=== PATIENT | male | born 1955 | race Caucasian/White ===

== ENCOUNTER → 2023-07-23 12:48 | Outpatient (REF) | payer OTHER, SELFPAY | LOC: RCS 12:48 | PROVIDERS: ATTENDING PHYSICIAN Internal Medicine Cardiovascular Disease; FAMILY PHYSICIAN Student in an Organized Health Care Education/Training Program | DX: I51.7 Cardiomegaly (principal); I51.89 Other ill-defined heart diseases | CPT/HCPCS: 93307; Q9950; Q9957 ==

== ENCOUNTER 2024-04-12 17:03 | Inpatient (IN) | payer OTHER, SELFPAY ==
[2024-04-12 13:30] VITALS: BP 141/102
[2024-04-12 13:48] LABS: % Basophils 0.7 % (0-2); % Eosinophils 1.9 % (0-6); % Immature Granulocytes 0.4 % (0-0.5); % Lymphocytes 21.5 % (20.5-51.1); % Monocytes 11.3 % (1.7-9.3); % Neutrophils 64.2 % (42.2-75.2); Absolute Basophils 0.1 10^3/uL (0-0.2); Absolute Eosinophils 0.2 10^3/uL (0-0.7); Absolute Lymphocytes 1.8 10^3/uL (1.2-3.4); Absolute Neutrophils 5.4 10^3/uL (1.4-6.5); Hematocrit 40.2 % (39.0-52.0); Hemoglobin 13.3 g/dL (13.0-18.0); Mean Corp Hgb Conc. 33.1 g/dL (33.0-37.0); Mean Corpuscular Hgb 32.8 pg (27.0-31.0); Mean Corpuscular Volume 99.3 fL (80.0-94.0); Mean Platelet Volume 9.5 fL (7.4-10.4); Nucleated Red Blood Cells % 0 % (-); Platelet Count 335 10^3/uL (130-400); Red Blood Cell Count 4.05 10^6/uL (4.70-6.10); Red Cell Dist. Width 12.9 % (11.5-14.5); White Blood Cell Count 8.4 10^3/uL (4.8-10.8)
[2024-04-12 14:05] LABS: ALT (SGPT) 23 U/L (0-50); AST (SGOT) 25 U/L (17-59); Albumin 4.1 g/dl (3.5-5.0); Alkaline Phosphatase 87 U/L (38-126); Blood Urea Nitrogen 22 mg/dl (9-20); Calcium 10.2 mg/dl (8.4-10.2); Carbon Dioxide 28 mmol/L (22-30); Chloride 102 mmol/L (98-107); Glucose 101 mg/dl (70-99); Sodium 137 mmol/L (135-145); Total Bilirubin 0.5 mg/dl (0.2-1.3); Total Protein 6.9 g/dl (6.3-8.2); eGFR > 60.00
[2024-04-12 14:06] LABS: NT-proBNP 140 pg/ml
[2024-04-12 14:38] VITALS: BP 145/81; BMI 41.6
--- NOTE | 2024-04-12 15:25 | ED.GENMED ---
History of Present Illness
General
Chief Complaint: Skin Problem
Time Seen by Provider: 04/12/24 14:25
History of Present Illness
History of Present Illness:
68-year-old male presents to the emergency department for evaluation of bilateral lower extremity swelling with redness and wounds waxing and waning for the past several months. Was last on a course of antibiotics last week but this was
discontinued at the recommendation of his primary care physician. He went to wound care for a consultation today where it was noted that he had significant skin desquamation and discharge and they recommended admission for IV antibiotics and
possible vascular surgery consultation. He has no claudication symptoms. No fevers or chills. Was most recently taking cephalexin
Review of Systems
Review of Systems
Allergies reviewed?: Yes
All Other Systems: ROS reviewed and negative except as documented in HPI and ROS
Phy Exam
Physical Exam
Physical Exam:
GEN: Well appearing, NAD, WDWN
HEENT: Oral mucosa moist, no scleral icterus
Cardiac: Regular rate
Lung: No respiratory distress, no tachypnea
MSK: No gross deformity or injuries
Skin: Good color, no pallor or jaundice. Circumferential erythema to BLE with severe skin desquamation, superficial ulceration to anterior RLE, copious serous discharge. Wounds generally malodorous
Neuro: AO x3, moves all extremities freely
Psych: Calm, cooperative
Course
Orders/Labs/Results
Orders:
Orders
04/12/24 13:39
Complete Blood Count/With Diff Urgent
Comprehensive Metabolic Panel Urgent
NT-proBNP Urgent
04/12/24 15:34
Vancomycin [Vancocin] 2,000 mg 0.9% Sodium Chloride 500 ml [Nss] 500 ml IV NOW
04/12/24 16:13
Admit/Transfer Patient As Directed
Co-Sign Provider:
Level of Care: Inpatient admission
Assign to:: Medical/Surgical
Physician / Group: Anita/hospitalist
Diagnosis: BL LE cellulitis
Reason for Hospitalization: BL LE cellulitis
Expected length of stay greater than two midnights?: Yes
ELOS- Estimated Length of Stay in days: 3
I certify the patient meets the requirements for IP care: Yes
PRN Pain Medication Management As Directed
May give lesser potent ordered pain med per pt: Yes
preference::
Protocol:: Medication orders for pain may be administered in a
manner that supports deferring to patient preference
when the pt is:
- Requesting an ordered lesser potent pain medication.
Least to most potent pain medications are defined
as: acetaminophen < NSAID < tramadol < opioids
(morphine, oxycodone, hydromorphone).
- Requesting a lesser dose of the same medication IF
ORDERED.
- Requesting a less intrusive route of administration
if both routes are prescribed by the provider (PO <
IV).
04/12/24 16:14
Code Status As Directed
Resuscitation Status: Full Code
Abnormal Lab Results
04/12/24
13:39
RBC 4.05 L 10^6/uL
(4.70-6.10)
MCV 99.3 H fL
(80.0-94.0)
MCH 32.8 H pg
(27.0-31.0)
Absolute Monos (auto) 1.0 H 10^3/uL
(0.1-0.6)
Monocytes % 11.3 H %
(1.7-9.3)
BUN 22 H mg/dl
(9-20)
Glucose 101 H mg/dl
(70-99)
04/12/24 13:39
04/12/24 13:39
Vital Signs
Initial and Last Documented VS:
Initial Vital Signs
Temp Pulse Resp BP Pulse Ox
98.2 F 70 18 141/102 99
04/12/24 13:30 04/12/24 13:30 04/12/24 13:30 04/12/24 13:30 04/12/24 13:30
Last Documented Vital Signs
Temp Pulse Resp BP Pulse Ox
98.6 F 76 20 145/81 99
04/12/24 14:38 04/12/24 14:38 04/12/24 14:38 04/12/24 14:38 04/12/24 14:38
MDM/Problems Addressed
MDM/Problems Addressed:
Discussed case with outpatient wound care, they recommend admission for IV antibiotics and vascular surgery consult although patient does have strong dorsalis pedis pulses bilaterally
*Critical Care Note
Total Time (30-74mins, 75-104mins- exclusive of procedures): Not Applicable
ED Attending Note
-
Portions of this chart may have been created with voice recognition software.� Occasional wrong word or��sound alike� substitutions may have occurred due to the inherent limitations of voice recognition software.
Discharge Plan
Departure
Patient Disposition: Admit
Date of Disposition: 04/12/24
Time of Disposition: 15:56
Admit to: Med/Surg
Presentation/result/management discussed w/ accepting MD/DO: Hospitalist
Discharge Problem:
Bilateral cellulitis of lower leg
Interventions
Interventions:
*Risk Screen - Suicide Last Done: 04/12/24 13:30
*General Assessment Last Done: 04/12/24 13:30
*Neglect/Abuse Screening Last Done: 04/12/24 13:30
ED- Fall Risk Assessment Last Done: 04/12/24 14:38
*ED COVID-19 Vaccine History Last Done: 04/12/24 13:30
ED-Skin Assessment Last Done: 04/12/24 14:38
[2024-04-12] MEDS: VANCOCIN 540 MG IV (15:53)
--- NOTE | 2024-04-12 16:01 | HPS.HSE ---
Family Physician
-
Family Physician: Amanda Lawrence MD, [place]
Chief Complaint
-
Bilateral lower extremity wound, swelling, redness
History of Present Illness
HPI: 68-year-old male with unclear past medical history, who presented to the emergency department for evaluation of bilateral lower extremity swelling with redness in setting of chronic BL LE wounds.
The patient was sent in from the wound care center for IV antibiotic.
He was recently on oral antibiotic Keflex per his PCP.
Medical History
Past Medical History
Past Medical History: Reports Other
Past Surgical History: Reports None
Social History
Tobacco: Non-smoker
Alcohol: None
Living: With Roomate
Family History
Family History: Not pertinent
Allergies / Home Medications
Allergies reflects when Allergies were last updated in [facility].
Home Medications with original date entered in [facility]
Allergy/Medication List:
Allergies
Allergy/AdvReac Type Severity Reaction Status Date / Time
No Known Allergies Allergy Unverified 04/12/24 13:31
Home Medications
cyanocobalamin (vitamin B-12) 1,000 mcg tablet,extended release 1,000 mcg PO DAILY 04/12/24
furosemide 40 mg tablet 40 mg PO BID 04/12/24
ibuprofen 200 mg tablet 800 mg PO Q8HPRN PRN mild pain 04/12/24
metoprolol succinate 25 mg tablet,extended release 24 hr 25 mg PO DAILY 04/12/24
silver sulfadiazine 1 % topical cream 1 applic topical BID legs 04/12/24
therapeutic multivitamin 1 tab PO DAILY 04/12/24
Review of Systems
-
Skin: Reports See HPI
Physical Exam
Vital Signs
Vital Signs
Temp Pulse Resp BP Pulse Ox
37.0 C 76 20 145/81 99
04/12/24 14:38 04/12/24 14:38 04/12/24 14:38 04/12/24 14:38 04/12/24 14:38
Physical Exam
General: Well Developed, Well Nourished, No Apparent Distress, Comfortable, Conversant and Morbidly Obese
HEENT: NormoCephalic, Moist mucous membranes and Atraumatic
Respiratory: Clear and Non Labored Respirations; No Accessory Resp Muscle Use
Cardiac: S1/S2 and Regular Rhythm; No Murmur or Rub
GI: Soft, Non Tender, Non Distended and Normal Bowel Sounds; No Organomegaly
Rectal: Deferred by Provider
Musculoskeletal: Edema, Left Lower Extremity and Edema, Right Lower Extremity
Skin: Rash (BL LE) and Other (BL LE weeping wound)
Neuro: Awake and Alert
Psych: Calm and Intact Judgment/Insight
Laboratory Results
-
04/12/24 13:39
04/12/24 13:39
Laboratory Results
Total Bilirubin 0.5 mg/dl (0.2-1.3) 04/12/24 13:39
AST 25 U/L (17-59) 04/12/24 13:39
ALT 23 U/L (0-50) 04/12/24 13:39
Alkaline Phosphatase 87 U/L (38-126) 04/12/24 13:39
Data Reviewed
-
Lab Data: Labs Reviewed by me
Impression/Plan
-
HPI: 68-year-old male with unclear past medical history, who presented to the emergency department for evaluation of bilateral lower extremity swelling with redness in setting of chronic BL LE wounds.
The patient was sent in from the wound care center for IV antibiotic.
He was recently on oral antibiotic Keflex per his PCP.
He denies to other symptoms.
A/P:
# BL LE cellulitis, in setting of chronic BL LE wounds
Check bilateral lower extremity arterial and venous ultrasound
Wound care consult
Continue antibiotic with IV vancomycin and Ancef
ID CS
# Morbid obesity
BMI 41
DVT ppx: Lovenox SQ
FC
[2024-04-12 22:20] VITALS: BP 131/73
[2024-04-12 22:35] VITALS: BP 156/92; BMI 42.5
[2024-04-12 22:55] VITALS: BMI 42.5
--- NOTE | 2024-04-12 23:03 | PHA.VAN.IN ---
Assessment
- Assessment
Renal Function: Unknown baseline
Concomitant Antimicrobials: ANCEF
- Previous Dosing Experience
Previous Regimen: NONE
AUC Dosing Plan
- Dosing Variables
Dosing Weight (kg): 138
Dosing CrCl (ml/min): 100
Vd coefficient (L/kg): 0.5
- Empiric Dosing
Initial / Loading Dose: 2GM
Maintenance Regimen: 1500MG IV Q12H
Estimated AUC (mcg*h/mL): 530
Estimated Peak (mcg*h/mL): 33.5
Estimated Trough (mcg/ml): 13.4
Estimated Half Life (H): 7.9
Pharmacokinetics Vancomycin I
- -
Patient Age: 68
Patient Sex: Male
Vancomycin Day #: 1
Indication: Skin And Soft Tissue (B\\L LE WOUNDS)
Requesting Provider: DOUGIE
Height / Weight:
Height 5 ft 11 in
Actual Weight 138.028 kg
Pertinent Past Medical History: CHRONIC WOUNDS;FAILED OUTPT TX W/KEFLEX
- Vital Signs / Lab Results
Temp Pulse Resp BP Pulse Ox
99.5 F 107 22 156/92 96
04/12/24 22:35 04/12/24 22:35 04/12/24 22:35 04/12/24 22:35 04/12/24 22:35
Lab Results - Hematology
04/12/24
13:39
WBC 8.4
Lab Results - Chemistry
04/12/24
13:39
BUN 22 H
Creatinine 0.8
Albumin 4.1
--- NOTE | 2024-04-12 23:19 | PTCARENOTE ---
Patient received from ED to 1 acute. Redressed BL LE wounds. Pt was a 1 assist with a single point cane, slow gait to transfer to bed. Admission and assessment documented. Pt oriented to the unit and settled. Call rogers is within reach.
[2024-04-12] MEDS: LASIX 40 MG PO (23:57)
[2024-04-12] MEDS: LOVENOX 40 MG SC (23:57)
[2024-04-13] MEDS: ANCEF 5 IV ×2 (00:07→08:23)
[2024-04-13] MEDS: MOTRIN 800 MG PO ×3 (01:37→22:50)
[2024-04-13] MEDS: VANCOCIN 530 MG IV (05:57)
[2024-04-13 06:00] VITALS: BMI 42.6
[2024-04-13 07:36] LABS: Glucose - Point of Care 106 mg/dl (70-99)
[2024-04-13 07:41] VITALS: BP 131/60
[2024-04-13] MEDS: TOPROL XL 25 MG PO (08:23)
[2024-04-13] MEDS: LASIX 40 MG PO ×2 (08:24→15:38)
[2024-04-13] MEDS: VITAMIN B-12 1000 MCG PO (08:24)
[2024-04-13 08:29] LABS: % Basophils 0.6 % (0-2); % Eosinophils 0.5 % (0-6); % Immature Granulocytes 0.4 % (0-0.5); % Lymphocytes 19.2 % (20.5-51.1); % Monocytes 14.8 % (1.7-9.3); % Neutrophils 64.5 % (42.2-75.2); Absolute Basophils 0.1 10^3/uL (0-0.2); Absolute Eosinophils 0.1 10^3/uL (0-0.7); Absolute Lymphocytes 1.9 10^3/uL (1.2-3.4); Absolute Monocytes 1.5 10^3/uL (0.1-0.6); Absolute Neutrophils 6.4 10^3/uL (1.4-6.5); Hematocrit 35.5 % (39.0-52.0); Hemoglobin 12.2 g/dL (13.0-18.0); Mean Corp Hgb Conc. 34.4 g/dL (33.0-37.0); Mean Corpuscular Hgb 34.1 pg (27.0-31.0); Mean Corpuscular Volume 99.2 fL (80.0-94.0); Mean Platelet Volume 10.1 fL (7.4-10.4); Nucleated Red Blood Cells % 0 % (-); Platelet Count 325 10^3/uL (130-400); Red Blood Cell Count 3.58 10^6/uL (4.70-6.10); Red Cell Dist. Width 12.8 % (11.5-14.5); White Blood Cell Count 9.9 10^3/uL (4.8-10.8)
[2024-04-13 08:54] LABS: Blood Urea Nitrogen 17 mg/dl (9-20); Calcium 9.3 mg/dl (8.4-10.2); Carbon Dioxide 25 mmol/L (22-30); Chloride 104 mmol/L (98-107); Estimated Creatinine Clearance > 125 ml/min; Glucose 96 mg/dl (70-99); Potassium 4.4 mmol/L (3.5-5.1); Sodium 138 mmol/L (135-145); eGFR > 60.00
--- NOTE | 2024-04-13 10:59 | CON.ID ---
Consultation
-
Date/Time Consultation Requested: April 12, 2024 [id number]
Date/Time Consultation Performed: April 13, 2024 0930
Requesting Provider: Dr. Loreto Howard
Performing Provider: Dr. Kori Martines
Reason for Consultation: Bilateral leg wounds
Chief Complaint / Past History
Chief Complaint
Worsening leg wounds. Wound care recommended admission
History of Present Illness
68-year-old male with class III obesity, hypertension, chronic lower extremity edema who presented from [facility] yesterday due to worsening bilateral lower extremity wounds. Patient reports that in February he noted a small cut on his right
leg. He does not know how the the cut got there. The next morning he woke up with large round domed shape wound filled with white pus. Eventually the white pus drained out leaving a residual wound. The wound did not heal. He also noted the
start of a small wound on his left medial leg. On March 09, PCP swabbed the wound for culture and recommended topical Silvadene. He was also referred to wound care clinic. On March 16, he received a call from his PCP that the wound cultures
came back with group B streptococcus and Pseudomonas. He was therefore prescribed levofloxacin 500 mg once a day and cephalexin 500 mg 4 times daily x 7 days. The wounds did not significantly improved. The right leg wound got worse again with
yellow drainage., In addition the left leg develop more wounds. On April 06 he was seen at his primary care office who restarted cephalexin and levofloxacin. [facility] infectious disease deemed wounds due to venous stasis; doubt further
antibiotics would help; he needed to see wound care clinic [facility]. April 08 the antibiotics were discontinued. Yesterday he was seen at wound care clinic who sent him to the hospital for bilateral lower extremity erythema/cellulitis and need for
PAD workup. Patient reports there is significant drainage right greater than the left leg. His gauze was soaked with yellowish fluid. The left leg wounds are also getting worse with more wounds and drainage. Also the surrounding erythema are
new. Patient has not used compression modalities yet. No fevers or chills. He has chronic lower extremity edema and is on furosemide. He reports his right leg is weak and neurology workup was negative. His sciatica flared up yesterday from
laying on the ER gurney for many hours waiting for a bed. He also noted occasional bilateral leg twitching this morning.
Past History
Additional Past Medical History:
Hypertension
Class III obesity BMI 43
Chronic lower extremity lymphedema
Sciatica
Right lower extremity weakness of unclear etiology, has had neurology workup
Left ventricular hypertrophy
Allergy History:
No Known Allergies Allergy (Unverified 04/12/24 13:31)
Medications Reviewed: Yes
Current Antibiotics:
Vancomycin
cefazolin
Social History
Tobacco: Non-Smoker
Alcohol: None
Drug: None
Personal:
Family History
Family History: Not Pertinent
Review of Systems
Review of Systems
General: Negative Fever, Chills or Change in Appetite
HEENT: Negative Sinus Problems, Headache or Pharyngitis
Cardiovascular: Negative Chest Pain or Dyspnea
Respiratory: Negative Dyspnea or Cough
Gasteroenterology: Negative Nausea, Vomiting or Diarrhea
Genital / Urological: Negative Dysuria or Flank Pain
Hematologic: Impaired Wound Healing
Neurological: Negative Dizziness
All systems: All other systems were reviewed and were negative
Vital Signs
Temp Pulse Resp BP Pulse Ox
98.5 F 83 17 131/60 96
04/13/24 07:41 04/13/24 08:24 04/13/24 07:41 04/13/24 08:24 04/13/24 07:41
Physical Exam
Physical Exam
Constitutional: No Acute Distress and Obese
Eyes: No Conjunctival Hemorrhage and Sclera Anicteric
Cardiovascular: Regular Rate and S1/S2
Pulmonary: Clear
Gastrointestinal: Soft, Non Tender, Non Distended and Normal Bowel Sounds
Genito-Urinary: Negative CVA Tenderness
Extremities: Edema (BLE lymphedema) and Pulses (Palpable dorsalis pedis pulses bilaterally)
Skin: Dry (BLE dry skin. Hypertrophic toenails. ) and Ulcers
Wound: Other (RLE large round brown wound with raised border, other venous stasis wounds present on calf, lateral leg, + copious yellow drainage; wounds surrounded with pink erythema. LLE + smaller venous stasis wounds with yellow drainage
surrounded by pink erythema. )
Neurological: AO x 3
Lab / Diagnostic Study Results
04/13/24 07:12
04/13/24 07:12
Abs Immat Gran (auto) 0.0 10^3/uL (0-0.05) 04/13/24 07:12
Absolute Neuts (auto) 6.4 10^3/uL (1.4-6.5) 04/13/24 07:12
Absolute Lymphs (auto) 1.9 10^3/uL (1.2-3.4) 04/13/24 07:12
Absolute Monos (auto) 1.5 10^3/uL (0.1-0.6) H 04/13/24 07:12
Absolute Basos (auto) 0.1 10^3/uL (0-0.2) 04/13/24 07:12
Immature Gran % 0.4 % (0-0.5) 04/13/24 07:12
Neutrophils % 64.5 % (42.2-75.2) 04/13/24 07:12
Lymphocytes % 19.2 % (20.5-51.1) L 04/13/24 07:12
Monocytes % 14.8 % (1.7-9.3) H 04/13/24 07:12
Eosinophils % 0.5 % (0-6) 04/13/24 07:12
Basophils % 0.6 % (0-2) 04/13/24 07:12
Microbiology Results
Micro:
04/13/24 10:14 Wound Culture - Pending
Leg - Right Gram Stain - Pending
12/10/24 10:13 Wound Culture - Pending
Leg - Left Gram Stain - Pending
Assessment / Plan
# Acute deterioration of chronic non-healing venous stasis wounds bilaterally.
# BLE lymphedema
- Doubt PAD with palpable pedal pulses; peripheral arterial duplex US to confirm
- Ordered B/L venous insufficiency US
- NEEDS COMPRESSION to reduce edema.
- Weight loss can be beneficial.
- Appreciate title vehicle service attendant recommendations.
- DC Vancomycin and cefazolin.
- Start cefepime 2g IV q8h to decrease bioburden on wounds.
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
Hypertension
Class III obesity BMI 43
Chronic lower extremity lymphedema
Sciatica
Right lower extremity weakness of unclear etiology, has had neurology workup
Left ventricular hypertrophy
Care Review
Plan reviewed with: Nurse (Wound Care Nurse)
--- NOTE | 2024-04-13 11:07 | WOUNDNOTE ---
RIGHT POSTERIOR LEG
--- NOTE | 2024-04-13 11:07 | WOUNDNOTE ---
LEFT POSTERIOR LEG
--- NOTE | 2024-04-13 11:08 | WOUNDNOTE ---
RIGHT MEDIAL LEG
--- NOTE | 2024-04-13 11:08 | WOUNDNOTE ---
LEFT LATERAL LEG
--- NOTE | 2024-04-13 11:21 | WOUNDNOTE ---
WO RN note: Patient admitted with bilateral LE cellulitis, in the setting of chronic BL LE wounds
See H&P for complete history.
PMH: Morbid obesity
Wound Location and type/assessment: Patient admitted with LE wounds. Dr. Martines also present to assess wounds. Patient reports worsening of symptoms of LE since February. He follows with his PCP who has prescribed Lasix, antibiotics and Silvadene
cream. Patient went to [facility] yesterday and was sent to ER. Right leg with 6x5 open wound and scattered open, draining areas. Left leg also with scaly skin, multiple open areas. Odor noted. Patient describes some numbness in LE. He reports that he
was able to ambulate and care for himself at home independently prior to admission. Sacrum and heels intact.
Pressure redistribution devices in place: Centrella Pro, heels off-loaded with pillows under calves. Patient is able to turn in bed.
Plan: Wounds cleaned with soap and water and wound cultures taken by Dr. Martines. Local wound care provided with adaptic, alginate and ABD. Compression with STEVEN also ordered and applied. Plan is to clean with Dakins and next dressing change.
Instructed patient to turn/reposition sacrum/buttocks in bed frequently, as he is unable to tolerate laying on side. Patient stated understanding and plans to ambulate to today. RN Isaiah given update. Orders confirmed with Dr. Howard. Updated care
plan and will follow as needed.
Recommend follow up at wound care center upon discharge.
[2024-04-13] MEDS: STERILE WATER FOR INJECTION 10 ML IV ×2 (12:30→21:18)
[2024-04-13] MEDS: MAXIPIME 2000 MG IV ×2 (12:30→21:18)
--- NOTE | 2024-04-13 13:30 | W.PN.HOSP.TC ---
Today's Communication/Plan
-
see A/P
Assessment / Plan
Assessment / Plan
HPI: 68-year-old male with unclear past medical history, who presented to the emergency department for evaluation of bilateral lower extremity swelling with redness in setting of chronic BL LE wounds.
The patient was sent in from the wound care center for IV antibiotic.
He was recently on oral antibiotic Keflex per his PCP.
He denies to other symptoms.
A/P:
# BL LE cellulitis, in setting of chronic BL LE wounds
# Chronic lower extremity lymphedema
Check bilateral lower extremity arterial and venous ultrasound
Wound care consult
Continue antibiotic with IV cefepime per ID
ID on board
# Morbid obesity
BMI 41
DVT ppx: Lovenox SQ
FC
Anticipated Discharge: 24 - 48 hours
Subjective/Interval History
-
Date of Service: April 13, 2024
Objective Data
-
Labs:
Laboratory Results
04/13/24
07:12
WBC 9.9
Hgb 12.2 L
Hct 35.5 L
Plt Count 325
Sodium 138
Potassium 4.4
Chloride 104
Carbon Dioxide 25
BUN 17
Creatinine 0.8
Glucose 96
Calcium 9.3
Vital Signs:
Vital Signs
Temp Pulse Resp BP Pulse Ox
36.9 C 83 17 131/60 96
04/13/24 07:41 04/13/24 08:24 04/13/24 07:41 04/13/24 08:24 04/13/24 07:41
I&O
04/12/24 04/13/24 04/14/24
06:59 06:59 06:59
Intake Total 740 / 740 435 / 435
Output Total 500 / 500 900 / 900
Balance 240 / 240 -465 / -465
Review of Systems
-
All other systems: Reviewed and negative
Physical Exam
-
General: Well Developed, Well Nourished, No Apparent Distress, Comfortable, Conversant and Morbidly Obese; Negative Respiratory Distress
HEENT: Normocephalic, Atraumatic, Nose Appears Normal and Ears Appear Normal; Negative Oxygen
Respiratory: Clear to Auscultation and Non Labored Respirations; Negative Accessory Resp Muscle Use
Cardiac: Regular Rhythm and S1/S2
GI: Soft, Nontender, Nondistended and Normal Bowel Sounds
Musculoskeletal: Edema, Right Lower Extrem and Edema, Left Lower Extrem
Skin: Warm, Dry and Lesions (see wound care note)
Neuro: Awake, Alert, Oriented and AO x 3
Psych: Calm and Intact Judgement/Insight
Data Reviewed
-
Labs: Labs Reviewed by me
[2024-04-13 15:30] VITALS: BP 155/64
--- NOTE | 2024-04-13 15:56 | CM ---
CM reviewed medical records. CM met with patient in room .Patient confirmed that he is staying with friends in [place], [place] while his 'living situation' is worked out. He denies history of VN or SNF> Patient does not have any DME In the home.
Patient has his PCP in [place] and is current with them. Patient would like to use the [facility] in [facility] for medication services.
CM will remain available as needed.
[2024-04-13] MEDS: LOVENOX 40 MG SC (17:07)
[2024-04-13] MEDS: DAKIN'S SOLUTION 0.125% 1/4 STRENGTH 473 ML TOPICAL (21:18)
[2024-04-13 23:15] VITALS: BP 148/72
[2024-04-14] MEDS: MAXIPIME 2000 MG IV ×3 (05:01→20:37)
[2024-04-14] MEDS: STERILE WATER FOR INJECTION 10 ML IV ×3 (05:01→20:37)
[2024-04-14 05:11] VITALS: BMI 41.5
[2024-04-14 06:31] LABS: % Basophils 0.8 % (0-2); % Eosinophils 1.2 % (0-6); % Immature Granulocytes 0.4 % (0-0.5); % Lymphocytes 24.8 % (20.5-51.1); % Monocytes 14.9 % (1.7-9.3); % Neutrophils 57.9 % (42.2-75.2); Absolute Basophils 0.1 10^3/uL (0-0.2); Absolute Eosinophils 0.1 10^3/uL (0-0.7); Absolute Lymphocytes 2.1 10^3/uL (1.2-3.4); Absolute Monocytes 1.2 10^3/uL (0.1-0.6); Absolute Neutrophils 4.8 10^3/uL (1.4-6.5); Hematocrit 35.2 % (39.0-52.0); Hemoglobin 12.4 g/dL (13.0-18.0); Mean Corp Hgb Conc. 35.2 g/dL (33.0-37.0); Mean Corpuscular Volume 96.4 fL (80.0-94.0); Mean Platelet Volume 9.8 fL (7.4-10.4); Nucleated Red Blood Cells % 0 % (-); Platelet Count 321 10^3/uL (130-400); Red Blood Cell Count 3.65 10^6/uL (4.70-6.10); Red Cell Dist. Width 12.8 % (11.5-14.5); White Blood Cell Count 8.4 10^3/uL (4.8-10.8)
[2024-04-14 07:02] LABS: Blood Urea Nitrogen 19 mg/dl (9-20); Calcium 9.4 mg/dl (8.4-10.2); Carbon Dioxide 26 mmol/L (22-30); Chloride 103 mmol/L (98-107); Estimated Creatinine Clearance > 125 ml/min; Glucose 96 mg/dl (70-99); Potassium 4.4 mmol/L (3.5-5.1); Sodium 135 mmol/L (135-145); eGFR > 60.00
[2024-04-14 07:47] VITALS: BP 164/81
[2024-04-14] MEDS: LASIX 40 MG PO (08:15)
[2024-04-14] MEDS: TOPROL XL 25 MG PO (08:15)
[2024-04-14] MEDS: DAKIN'S SOLUTION 0.125% 1/4 STRENGTH TOPICAL (08:16)
[2024-04-14] MEDS: VITAMIN B-12 1000 MCG PO (08:16)
[2024-04-14] MEDS: MOTRIN 800 MG PO ×2 (08:19→22:52)
--- NOTE | 2024-04-14 10:19 | CM ---
Patient seen at bedside. Patient states he wants to go home with IV antibiotics and agreed to have CM send referral to [facility] after review of PAC data. Patient requested [facility], I will review with liaison but due to need for IV nurse I don't
believe that [facility] will be able to assist. CM will send tt to ID to request prescription. CM will continue to follow for discharge planning needs.
Plan; home with IV antibiotics pending physician assessment, medical treatment plan
--- NOTE | 2024-04-14 10:28 | CM ---
Patient seen at bedside. Patient complaining of back pain, nursing aware. Patient stated he has no discharge needs and indicated he was hoping for discharge soon. CM will continue to follow for discharge planning needs.
Plan; home with no needs vs home with Vn
[2024-04-14] MEDS: DAKIN'S SOLUTION 0.125% 1/4 STRENGTH 100 ML TOPICAL (12:01)
--- NOTE | 2024-04-14 13:12 | W.PN.ID1 ---
Addendum entered and electronically signed by Kori Martines MD 04/14/24 17:59:
I saw and evaluated the patient. I reviewed the resident�s note and agree with findings and plan as documented in the resident�s note.
# Acute deterioration of chronic non-healing venous stasis wounds bilaterally.
# BLE lymphedema
- peripheral arterial duplex US: no PAD
-B/L venous insufficiency US negative valve reflux, but negative test does not rule out venous stasis.
- No DVT
- Continue COMPRESSION to reduce edema.
- Weight loss can be beneficial.
- Appreciate director career services recommendations.
- Wound swabs: Pseudomonas
- Continue cefepime 2g IV q8(d2) to decrease bioburden on wounds.
- Will u
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
Hypertension
Class III obesity BMI 43
Chronic lower extremity lymphedema
Sciatica
Right lower extremity weakness of unclear etiology, has had neurology workup
Left ventricular hypertrophy
Original Note:
Date of Service
Date of Service: April 14, 2024
Today's Communication
.
Assessment / Plan
# Acute deterioration of chronic non-healing venous stasis wounds bilaterally.
# BLE lymphedema
-Bilateral lower extremity arterial - No focal velocity elevations are identified to suggest significant stenosis.
-venous ultrasound no evidence of DVT
-compression needed to reduce edema.
-Recommend weight loss
-legal support manager recommendations appreciated
-Wound cultures bilateral legs positive for Pseudomonas organism
-Continue on cefepime 2g IV q8h to decrease bioburden on wounds.
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
Hypertension
Class III obesity BMI 43
Chronic lower extremity lymphedema
Sciatica
Right lower extremity weakness of unclear etiology, has had neurology workup
Left ventricular hypertrophy
Chief Complaint
-: Other (Bilateral lower extremity edema)
Subjective / Review of Systems
Review of Systems: No Fever and No Chills
Vital Signs / Physical Exam
Vital Signs
Vital Signs
Temp Pulse Resp BP Pulse Ox
97.6 F 75 17 164/81 96
04/14/24 07:47 04/14/24 08:15 04/14/24 07:47 04/14/24 08:15 04/14/24 07:47
Physical Exam
Constitutional: No Acute Distress
Eyes: No Conjunctival Hemorrhage and Sclera Anicteric
Cardiovascular: Regular Rate and S1/S2
Pulmonary: Clear
Gastrointestinal: Soft, Non Tender and Non Distended
Extremities: Edema (BLE lymphedema)
Wound: Other (wound wrapped with braxton bandage)
Neurological: AO x 3
Objective Data
Lab Data
Lab Results
04/14/24 06:04
04/14/24 06:04
Estimated Creat Clear > 125 ml/min 04/14/24 06:04
Total Bilirubin 0.5 mg/dl (0.2-1.3) 04/12/24 13:39
AST 25 U/L (17-59) 04/12/24 13:39
ALT 23 U/L (0-50) 04/12/24 13:39
Alkaline Phosphatase 87 U/L (38-126) 04/12/24 13:39
Most recent labs reviewed.
Micro Results:
04/13/24 10:13 Wound Culture - Preliminary
Leg - Left Pseudomonas aeruginosa
Gram Stain - Preliminary
04/13/24 10:14 Wound Culture - Preliminary
Leg - Right Pseudomonas aeruginosa
Gram Stain - Preliminary
[2024-04-14] MEDS: LIORESAL 2.5 MG PO ×2 (13:23→20:37)
--- NOTE | 2024-04-14 14:01 | W.PN.HOSP.TC ---
Today's Communication/Plan
-
see A/P
Assessment / Plan
Assessment / Plan
HPI: 68-year-old male with unclear past medical history, who presented to the emergency department for evaluation of bilateral lower extremity swelling with redness in setting of chronic BL LE wounds.
The patient was sent in from the wound care center for IV antibiotic.
He was recently on oral antibiotic Keflex per his PCP.
He denies to other symptoms.
A/P:
# BL LE cellulitis in setting of chronic BL LE wounds and chronic lower extremity lymphedema
BL LE venous US neg for DVT
BL LE arterial US EDWIN within normal limits
Wound Cx growing pseudomonas, follow for sensitivity
Cont IV Cefepime
Wound care and ID on board
# Morbid obesity
BMI 41
# Likely sleep apnea
can start CPAP while in hospital
# weight gain
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
work up for CHF outpt
DVT ppx: Lovenox SQ
FC
PT OT eval
Anticipated Discharge: 24 - 48 hours
Subjective/Interval History
-
Date of Service: April 14, 2024
Objective Data
-
Labs:
Laboratory Results
04/14/24
06:04
WBC 8.4
Hgb 12.4 L
Hct 35.2 L
Plt Count 321
Sodium 135
Potassium 4.4
Chloride 103
Carbon Dioxide 26
BUN 19
Creatinine 0.8
Glucose 96
Calcium 9.4
Vital Signs:
Vital Signs
Temp Pulse Resp BP Pulse Ox
36.4 C 75 17 164/81 96
04/14/24 07:47 04/14/24 08:15 04/14/24 07:47 04/14/24 08:15 04/14/24 07:47
I&O
04/13/24 04/14/24 04/15/24
06:59 06:59 06:59
Intake Total 740 / 740 2135 / 2135
Output Total 500 / 500 3285 / 3285 225 / 225
Balance 240 / 240 -1150 / -1150 -215 / -215
Review of Systems
-
All other systems: Reviewed and negative
Physical Exam
-
General: Well Developed, Well Nourished, No Apparent Distress, Comfortable, Conversant and Morbidly Obese; Negative Respiratory Distress
HEENT: Normocephalic, Atraumatic, Nose Appears Normal and Ears Appear Normal; Negative Oxygen
Respiratory: Clear to Auscultation and Non Labored Respirations; Negative Accessory Resp Muscle Use
Cardiac: Regular Rhythm and S1/S2
GI: Soft, Nontender, Nondistended and Normal Bowel Sounds
Musculoskeletal: Edema, Right Lower Extrem and Edema, Left Lower Extrem
Skin: Warm, Dry and Lesions (see wound care note)
Neuro: Awake, Alert, Oriented and AO x 3
Psych: Calm and Intact Judgement/Insight
Data Reviewed
-
Labs: Labs Reviewed by me
[2024-04-14 14:38] VITALS: BP 139/63
[2024-04-14] MEDS: LASIX 40 MG IV (16:08)
[2024-04-14] MEDS: LOVENOX 40 MG SC (17:00)
[2024-04-14] MEDS: DAKIN'S SOLUTION 0.125% 1/4 STRENGTH 473 ML TOPICAL (22:54)
[2024-04-14 23:15] VITALS: BP 130/73
[2024-04-15] VITALS (7 sets, daily range): BP systolic 127–133; BP diastolic 60–72; PULSE 60–71; BMI 40.7
[2024-04-15] MEDS: MAXIPIME 2000 MG IV ×3 (04:12→19:41)
[2024-04-15] MEDS: STERILE WATER FOR INJECTION 10 ML IV ×3 (04:13→19:42)
[2024-04-15 07:46] LABS: Hematocrit 36.1 % (39.0-52.0); Hemoglobin 12.2 g/dL (13.0-18.0); Mean Corp Hgb Conc. 33.8 g/dL (33.0-37.0); Mean Corpuscular Hgb 32.6 pg (27.0-31.0); Mean Corpuscular Volume 96.5 fL (80.0-94.0); Mean Platelet Volume 9.7 fL (7.4-10.4); Platelet Count 348 10^3/uL (130-400); Red Blood Cell Count 3.74 10^6/uL (4.70-6.10); Red Cell Dist. Width 12.6 % (11.5-14.5); White Blood Cell Count 7.9 10^3/uL (4.8-10.8)
[2024-04-15 08:02] LABS: Blood Urea Nitrogen 18 mg/dl (9-20); Calcium 9.6 mg/dl (8.4-10.2); Carbon Dioxide 27 mmol/L (22-30); Chloride 102 mmol/L (98-107); Estimated Creatinine Clearance 111 ml/min; Glucose 103 mg/dl (70-99); Potassium 4.2 mmol/L (3.5-5.1); Sodium 136 mmol/L (135-145); eGFR > 60.00
[2024-04-15] MEDS: LASIX 40 MG IV ×2 (09:34→17:31)
[2024-04-15] MEDS: VITAMIN B-12 1000 MCG PO (09:34)
[2024-04-15] MEDS: TOPROL XL 25 MG PO (09:34)
[2024-04-15] MEDS: LIORESAL 2.5 MG PO ×2 (09:35→22:35)
[2024-04-15] MEDS: MOTRIN 800 MG PO ×2 (09:41→22:35)
[2024-04-15] MEDS: DAKIN'S SOLUTION 0.125% 1/4 STRENGTH 473 ML TOPICAL ×2 (09:43→19:44)
--- NOTE | 2024-04-15 09:48 | W.PN.ID1 ---
Addendum entered and electronically signed by Kori Martines MD 04/15/24 15:53:
I saw and evaluated the patient. I reviewed the resident�s note and agree with findings and plan as documented in the resident�s note.
Exam: bilateral LE: edema decreased, drainage significantly less, wounds are rice drier operator, periwound erythema decreased
# Acute deterioration of chronic non-healing venous stasis wounds bilaterally.
# Cellultitis
# BLE lymphedema
- peripheral arterial duplex US: no PAD
-B/L venous insufficiency US negative valve reflux, but negative test does not rule out venous stasis.
- No DVT
- Continue COMPRESSION to reduce edema.
- Weight loss can be beneficial.
- Appreciate manager marketing sales recommendations.
- Wound swabs: Pseudomonas resistant to cipro.
- Continue cefepime 2g IV q8(d3) till 04/27/24.
Home infusion sheet submitted to window caser.
- Place Picc line
-Recommend home visiting wound nurse.
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
Hypertension
Class III obesity BMI 43
Chronic lower extremity lymphedema
Sciatica
Right lower extremity weakness of unclear etiology, has had neurology workup
Left ventricular hypertrophy
Original Note:
Date of Service
Date of Service: April 15, 2024
Today's Communication
.
Assessment / Plan
# Acute deterioration of chronic non-healing venous stasis wounds bilaterally.
# BLE lymphedema
-Bilateral lower extremity arterial - No focal velocity elevations are identified to suggest significant stenosis.
-venous ultrasound no evidence of DVT
-compression needed to reduce edema.
-Recommend weight loss
-med specialist recommendations appreciated
-Wound cultures bilateral legs positive for Pseudomonas organism. sensitivities have returned
-Continue on cefepime 2g IV q8h to decrease bioburden on wounds.
-will need home IV abx
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
Hypertension
Class III obesity BMI 43
Chronic lower extremity lymphedema
Sciatica
Right lower extremity weakness of unclear etiology, has had neurology workup
Left ventricular hypertrophy
Chief Complaint
-: Other (Bilateral lower extremity edema)
Subjective / Review of Systems
Review of Systems: No Fever and No Chills
Vital Signs / Physical Exam
Vital Signs
Vital Signs
Temp Pulse Resp BP Pulse Ox
98.5 F 66 18 133/71 95
04/15/24 07:00 04/15/24 09:34 04/15/24 07:00 04/15/24 09:34 04/15/24 07:00
Physical Exam
Constitutional: No Acute Distress
Eyes: No Conjunctival Hemorrhage and Sclera Anicteric
Cardiovascular: Regular Rate and S1/S2
Pulmonary: Clear
Gastrointestinal: Soft, Non Tender and Non Distended
Extremities: Edema (BLE lymphedema)
Wound: Other (RLE large erythematous wound, with mild improved but still present copious yellow drainage ... LLE venous stasis wound, pink erythema, weeping blood in the lateral leg)
Neurological: AO x 3
Objective Data
Lab Data
Lab Results
04/15/24 06:59
04/15/24 06:59
Estimated Creat Clear 111 ml/min 04/15/24 06:59
Total Bilirubin 0.5 mg/dl (0.2-1.3) 04/12/24 13:39
AST 25 U/L (17-59) 04/12/24 13:39
ALT 23 U/L (0-50) 04/12/24 13:39
Alkaline Phosphatase 87 U/L (38-126) 04/12/24 13:39
Most recent labs reviewed.
Micro Results:
04/13/24 10:14 Wound Culture - Preliminary
Leg - Right Pseudomonas aeruginosa
Gram Stain - Preliminary
04/13/24 10:13 Wound Culture - Preliminary
Leg - Left Pseudomonas aeruginosa
Gram Stain - Preliminary
[2024-04-15 11:59] LABS: % Basophils 0.9 % (0-2); % Eosinophils 1.6 % (0-6); % Immature Granulocytes 0.3 % (0-0.5); % Lymphocytes 25.1 % (20.5-51.1); % Monocytes 13.6 % (1.7-9.3); % Neutrophils 58.5 % (42.2-75.2); Absolute Basophils 0.1 10^3/uL (0-0.2); Absolute Eosinophils 0.1 10^3/uL (0-0.7); Absolute Monocytes 1.1 10^3/uL (0.1-0.6); Absolute Neutrophils 4.6 10^3/uL (1.4-6.5); Nucleated Red Blood Cells % 0 % (-)
--- NOTE | 2024-04-15 12:12 | W.PN.HOSP.TC ---
Today's Communication/Plan
-
see A/P
Assessment / Plan
Assessment / Plan
HPI: 68-year-old male with unclear past medical history, who presented to the emergency department for evaluation of bilateral lower extremity swelling with redness in setting of chronic BL LE wounds.
The patient was sent in from the wound care center for IV antibiotic.
He was recently on oral antibiotic Keflex per his PCP.
He denies to other symptoms.
A/P:
# BL LE cellulitis in setting of chronic BL LE wounds and chronic lower extremity lymphedema
BL LE venous US neg for DVT
BL LE arterial US EDWIN within normal limits
Wound Cx growing pseudomonas, resistant to PO cipro
Cont IV Cefepime
Wound care and ID on board
# Morbid obesity
BMI 41
# Likely sleep apnea
can start CPAP while in hospital
# weight gain
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
work up for CHF outpt
DVT ppx: Lovenox SQ
FC
Dispo: HH per PT OT
Anticipated Discharge: Within 24 hours
Subjective/Interval History
-
Date of Service: April 15, 2024
Objective Data
-
Labs:
Laboratory Results
04/15/24
06:59
WBC 7.9
Hgb 12.2 L
Hct 36.1 L
Plt Count 348
Sodium 136
Potassium 4.2
Chloride 102
Carbon Dioxide 27
BUN 18
Creatinine 0.9
Glucose 103 H
Calcium 9.6
Vital Signs:
Vital Signs
Temp Pulse Resp BP Pulse Ox
36.9 C 66 18 133/71 95
04/15/24 07:00 04/15/24 09:34 04/15/24 07:00 04/15/24 09:34 04/15/24 07:00
I&O
04/14/24 04/15/24 04/16/24
06:59 06:59 06:59
Intake Total 2135 / 2135 2450 / 2450
Output Total 3285 / 3285 4105 / 4105 600 / 600
Balance -1150 / -1150 -1655 / -1655 -600 / -600
Review of Systems
-
All other systems: Reviewed and negative
Physical Exam
-
General: Well Developed, Well Nourished, No Apparent Distress, Comfortable, Conversant and Morbidly Obese; Negative Respiratory Distress
HEENT: Normocephalic, Atraumatic, Nose Appears Normal and Ears Appear Normal; Negative Oxygen
Respiratory: Clear to Auscultation and Non Labored Respirations; Negative Accessory Resp Muscle Use
Cardiac: Regular Rhythm and S1/S2
GI: Soft, Nontender, Nondistended and Normal Bowel Sounds
Musculoskeletal: Edema, Right Lower Extrem and Edema, Left Lower Extrem
Skin: Warm, Dry and Lesions (see wound care note)
Neuro: Awake, Alert, Oriented and AO x 3
Psych: Calm and Intact Judgement/Insight
Data Reviewed
-
Ultrasound: Report Reviewed by me
Labs: Labs Reviewed by me
--- NOTE | 2024-04-15 13:30 | CM ---
Patient seen bedside.
Patient agreeable to home IV anbx with VN for wound care.
Patient
Discussed options.
Patient will be going home to:
[address] [place] [id number]
Patient phoned his friend and is interested in [facility] for wound care.
Reaching out to infusion companies.
[2024-04-15] MEDS: LOVENOX 40 MG SC (17:32)
[2024-04-16] VITALS: BP 110/70
[2024-04-16] MEDS: MAXIPIME 2000 MG IV ×3 (04:29→20:21)
[2024-04-16] MEDS: STERILE WATER FOR INJECTION 10 ML IV ×3 (04:30→20:19)
[2024-04-16 06:00] VITALS: BMI 39.7
[2024-04-16 07:00] VITALS: BP 136/68
[2024-04-16 08:00] LABS: % Eosinophils 1.9 % (0-6); % Immature Granulocytes 0.2 % (0-0.5); % Lymphocytes 25.8 % (20.5-51.1); % Monocytes 12.4 % (1.7-9.3); % Neutrophils 58.7 % (42.2-75.2); Absolute Basophils 0.1 10^3/uL (0-0.2); Absolute Eosinophils 0.2 10^3/uL (0-0.7); Absolute Lymphocytes 2.1 10^3/uL (1.2-3.4); Absolute Neutrophils 4.7 10^3/uL (1.4-6.5); Hematocrit 37.6 % (39.0-52.0); Hemoglobin 12.4 g/dL (13.0-18.0); Mean Corpuscular Hgb 32.2 pg (27.0-31.0); Mean Corpuscular Volume 97.7 fL (80.0-94.0); Mean Platelet Volume 9.5 fL (7.4-10.4); Nucleated Red Blood Cells % 0 % (-); Platelet Count 366 10^3/uL (130-400); Red Blood Cell Count 3.85 10^6/uL (4.70-6.10); Red Cell Dist. Width 12.6 % (11.5-14.5); White Blood Cell Count 8.1 10^3/uL (4.8-10.8)
[2024-04-16] MEDS: VITAMIN B-12 1000 MCG PO (08:35)
[2024-04-16] MEDS: LASIX 40 MG IV ×2 (08:35→16:20)
[2024-04-16] MEDS: TOPROL XL 25 MG PO (08:35)
[2024-04-16 08:42] LABS: Blood Urea Nitrogen 20 mg/dl (9-20); Calcium 9.5 mg/dl (8.4-10.2); Carbon Dioxide 30 mmol/L (22-30); Chloride 101 mmol/L (98-107); Estimated Creatinine Clearance 123 ml/min; Glucose 98 mg/dl (70-99); Potassium 4.2 mmol/L (3.5-5.1); Sodium 135 mmol/L (135-145); eGFR > 60.00
[2024-04-16] MEDS: DAKIN'S SOLUTION 0.125% 1/4 STRENGTH 1 ML TOPICAL ×2 (09:14→22:49)
--- NOTE | 2024-04-16 10:50 | W.PN.ID1 ---
Addendum entered and electronically signed by Kori Martines MD 04/16/24 15:11:
I saw and evaluated the patient. I reviewed the resident�s note and agree with findings and plan as documented in the resident�s note.
Exam: bilateral LE: edema continues to decrease, drainage no scant, wounds are dry, periwound erythema decreased
# Acute deterioration of chronic non-healing venous stasis wounds bilaterally.
# Cellultitis improving
# BLE lymphedema
- peripheral arterial duplex US: no PAD
-B/L venous insufficiency US negative valve reflux, but negative test does not rule out venous stasis.
- No DVT
- Continue COMPRESSION to reduce edema.
- Weight loss can be beneficial.
- Appreciate intelligence group supervisor recommendations.
- Wound swabs: Pseudomonas resistant to cipro.
- Continue cefepime 2g IV q8 (d4) till 04/27/24 to decrease bioburden.
Home infusion sheet submitted to showcase trimmer.
- Placed midline
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
Hypertension
Class III obesity BMI 43
Chronic lower extremity lymphedema
Sciatica
Right lower extremity weakness of unclear etiology, has had neurology workup
Left ventricular hypertrophy
Original Note:
Date of Service
Date of Service: April 16, 2024
Today's Communication
.
Assessment / Plan
# Acute deterioration of chronic non-healing venous stasis wounds bilaterally.
# BLE lymphedema
-Bilateral lower extremity arterial - No focal velocity elevations are identified to suggest significant stenosis.
-venous ultrasound no evidence of DVT
-compression needed to reduce edema.
-Recommend weight loss
-conservation science teacher recommendations appreciated
-Wound cultures bilateral legs positive for Pseudomonas organism, resistant to cipro
-Continue on cefepime 2g IV q8h (d4) till 04/27/24
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
Hypertension
Class III obesity BMI 43
Chronic lower extremity lymphedema
Sciatica
Right lower extremity weakness of unclear etiology, has had neurology workup
Left ventricular hypertrophy
Chief Complaint
-: Other (Bilateral lower extremity edema)
Subjective / Review of Systems
Review of Systems: No Fever and No Chills
Vital Signs / Physical Exam
Vital Signs
Vital Signs
Temp Pulse Resp BP Pulse Ox
97.9 F 67 18 136/68 95
04/16/24 07:00 04/16/24 07:00 04/16/24 07:00 04/16/24 07:00 04/16/24 07:00
Physical Exam
Constitutional: No Acute Distress
Eyes: No Conjunctival Hemorrhage and Sclera Anicteric
Cardiovascular: Regular Rate and S1/S2
Pulmonary: Clear
Gastrointestinal: Soft, Non Tender and Non Distended
Extremities: Edema (BLE lymphedema)
Wound: Other (RLE large erythematous wound, moderate improvement,copious yellow drainage greatly improved. LLE venous stasis wound, pink erythema)
Neurological: AO x 3
Objective Data
Lab Data
Lab Results
04/16/24 07:06
04/16/24 07:06
Estimated Creat Clear 123 ml/min 04/16/24 07:06
Total Bilirubin 0.5 mg/dl (0.2-1.3) 04/12/24 13:39
AST 25 U/L (17-59) 04/12/24 13:39
ALT 23 U/L (0-50) 04/12/24 13:39
Alkaline Phosphatase 87 U/L (38-126) 04/12/24 13:39
Most recent labs reviewed.
Micro Results:
04/13/24 10:13 Wound Culture - Final
Leg - Left Pseudomonas aeruginosa
Gram Stain - Final
04/13/24 10:14 Wound Culture - Final
Leg - Right Pseudomonas aeruginosa
Gram Stain - Final
--- NOTE | 2024-04-16 11:27 | CM ---
Addendum entered by Brenda Callahan RN 04/16/24 14:48:
CM faxed midline information.
Addendum entered by Brenda Callahan RN 04/16/24 14:14:
Plan for discharge tomorrow with [facility] meeting patient at 1200 noon for dose. Patient is aware and agreeable.
[facility] to be updated on day of discharge.
Patient will drive home himself.
Addendum entered by Brenda Callahan RN 04/16/24 13:28:
[facility] is speaking with patient now.
Addendum entered by Brenda Callahan RN 04/16/24 13:23:
CM faxed PICC line information to [facility]. [facility] will confirm that they can service patient this evening.
Addendum entered by Brenda Callahan RN 04/16/24 12:46:
CM confirmed that patient's medications are covered at 100% via [facility]. CM spoke with Myah who will confirm that patient can be discharged today. CM will updated hospitalist.
Addendum entered by Brenda Callahan RN 04/16/24 12:25:
[facility] is able to accept patient.
Addendum entered by Brenda Callahan RN 04/16/24 12:00:
CM sent referral via [facility] to [facility] .
Addendum entered by Brenda Callahan RN 04/16/24 11:55:
[facility] is unable to accept due to staffing.
Original Note:
BENJAMIN spoke with Hua from [facility]. Plan for [facility] to deliver medications and provide nursing support.
[facility] has declined referral for wound care. CM will contact [facility] to clarify declination.
[2024-04-16] MEDS: MOTRIN 800 MG PO ×2 (12:22→21:07)
[2024-04-16] MEDS: LIORESAL 2.5 MG PO ×2 (12:23→21:07)
--- NOTE | 2024-04-16 12:38 | W.PN.HOSP.TC ---
Addendum entered and electronically signed by Elise Howard MD 04/16/24 16:17:
total DC time 36 min
Original Note:
Today's Communication/Plan
-
see A/P
Assessment / Plan
Assessment / Plan
HPI: 68-year-old male with unclear past medical history, who presented to the emergency department for evaluation of bilateral lower extremity swelling with redness in setting of chronic BL LE wounds.
The patient was sent in from the wound care center for IV antibiotic.
He was recently on oral antibiotic Keflex per his PCP.
He denies to other symptoms.
A/P:
# BL LE cellulitis in setting of chronic BL LE wounds and chronic lower extremity lymphedema
BL LE venous US neg for DVT
BL LE arterial US EDWIN within normal limits
Wound Cx growing pseudomonas, resistant to PO cipro
Cont IV Cefepime 2g IV q8 till 04/27/24 per ID with home infusion
Wound care and ID on board
# Morbid obesity
BMI 41
# Likely sleep apnea
can start CPAP while in hospital
# weight gain
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
work up for CHF outpt
DVT ppx: Lovenox SQ
FC
Dispo: HH per PT OT
DW CM
Anticipated Discharge: Today
Subjective/Interval History
-
Date of Service: April 16, 2024
Objective Data
-
Labs:
Laboratory Results
04/16/24
07:06
WBC 8.1
Hgb 12.4 L
Hct 37.6 L
Plt Count 366
Sodium 135
Potassium 4.2
Chloride 101
Carbon Dioxide 30
BUN 20
Creatinine 0.8
Glucose 98
Calcium 9.5
Vital Signs:
Vital Signs
Temp Pulse Resp BP Pulse Ox
36.6 C 67 18 136/68 95
04/16/24 07:00 04/16/24 07:00 04/16/24 07:00 04/16/24 07:00 04/16/24 07:00
I&O
04/15/24 04/16/24 04/17/24
06:59 06:59 06:59
Intake Total 2450 / 2450
Output Total 4105 / 4105 2525 / 2525
Balance -1655 / -1655 -2525 / -2525
Review of Systems
-
All other systems: Reviewed and negative
Physical Exam
-
General: Well Developed, Well Nourished, No Apparent Distress, Comfortable, Conversant and Morbidly Obese; Negative Respiratory Distress
HEENT: Normocephalic, Atraumatic, Nose Appears Normal and Ears Appear Normal; Negative Oxygen
Respiratory: Clear to Auscultation and Non Labored Respirations; Negative Accessory Resp Muscle Use
Cardiac: Regular Rhythm and S1/S2
GI: Soft, Nontender, Nondistended and Normal Bowel Sounds
Musculoskeletal: Edema, Right Lower Extrem and Edema, Left Lower Extrem
Skin: Warm, Dry and Lesions (see wound care note)
Neuro: Awake, Alert, Oriented and AO x 3
Psych: Calm and Intact Judgement/Insight
Data Reviewed
-
Ultrasound: Report Reviewed by me
Labs: Labs Reviewed by me
[2024-04-16 15:00] VITALS: BP 157/89
--- NOTE | 2024-04-16 15:31 | W.DCSUMMARY ---
Addendum entered and electronically signed by Elise Howard MD 04/17/24 09:16:
Discharge date 04/17/2024 due to logistic reasons (timing of home infusion visit etc.)
No change to discharge summary
Original Note:
Discharge Summary
Discharge Data
Date of Admission: 04/12/24
Date of Discharge: 04/16/24
-
Pending Results: No
Hospital Course
Principal Diagnosis:
Bilateral lower extremity cellulitis in setting of chronic lower extremity wound and lymphedema
Chronic Diagnoses:�
Morbid obesity. BMI 41
Likely sleep apnea. Outpatient sleep study with PCP
Consultations:�
Infectious disease
Wound care
Procedures:�
None
Clinical course:�
This is a 68-year-old male with unclear past medical history, who presented with increasing bilateral lower extremity swelling and redness on top of chronic lower extremity wound.
He was sent in from the wound care center for IV antibiotic.
Problem 1:
BL LE cellulitis in setting of chronic BL LE wounds and chronic lower extremity lymphedema.
His BL LE venous US was neg for DVT.
His BL LE arterial US EDWIN was within normal limits.
His wound culture grew Pseudomonas, resistant to PO cipro.
He was treated with IV antibiotics cefepime while in the hospital, and was recommended by ID to continue IV Cefepime 2g IV q8 till 04/27/24 with home infusion.
As for the rest of his medical problems, they were stable during his hospital stay.
Discharge Plan
-
Patient Disposition: Home with Home Care
Discharge Diagnosis/Procedures: Bilateral lower extremity cellulitis in setting of chronic bilateral lower extremity wounds and chronic lower extremity lymphedema
Condition: Fair
Diet: As tolerated
Activity: As tolerated
Driving Restrictions: Not until seen by your Dr
Wound Care: Wound Care Instructions
Right and Left Leg- Clean with 1/4 strength Dakins. Apply ADAPTIC over open areas and use ALGINATE over large open areas with moderate/heavy drainage. Cover with ABD and Rolando. Wrap with Kerlix and STEVEN. Change BID and PRN if loose or for drainage.
STEVEN wraps to LE daily
Keep heels off-loaded with pillow or air cushion under heels
FOLLOW UP WITH YOUR COMMERCIAL TITLE EXAMINER
Follow up at wound care center call for an appointment.
Referrals:
Amanda Hernandez MD, Resident [Family Provider] - in less than 1 week
Additional Discharge Medication Instructions: Continue IV antibiotics cefepime 2g IV q8 till 04/27/24 with home infusion
Prescriptions:
Continued
furosemide 40 mg Tablet
40 mg PO BID
silver sulfadiazine 1 % Cream
1 applic TOPICAL BID
cyanocobalamin (vitamin B-12) 1,000 mcg Tablet Extended Release
1,000 mcg PO DAILY
therapeutic multivitamin Tablet
1 tab PO DAILY
ibuprofen 200 mg Tablet
800 mg PO Q8HPRN PRN (Reason: mild pain)
metoprolol succinate 25 mg Tablet Extended Release 24 Hr
25 mg PO DAILY
Discharge Orders:
Discharge Patient (As Directed); Ordered 04/16/24
Ordered By: Elise Howard
Discharge Date and Time
Print Language: TAIWANESE
--- NOTE | 2024-04-16 15:33 | PTCARENOTE ---
pt transfer from 1 Acute. pt is AAO*3, Vss, room air. pt denies any pain at this time. pt oriented to the room. call rogers within the reach. plan of care ongoing.
--- NOTE | 2024-04-16 17:08 | CM ---
[facility] (Wound Care)
[2024-04-16] MEDS: LOVENOX 40 MG SC (17:12)
[2024-04-16 23:31] VITALS: BP 132/73
[2024-04-17 02:00] VITALS: PULSE 76
[2024-04-17] MEDS: MAXIPIME 2000 MG IV (04:45)
[2024-04-17] MEDS: STERILE WATER FOR INJECTION 10 ML IV (04:45)
[2024-04-17 05:24] LABS: % Basophils 0.8 % (0-2); % Eosinophils 1.7 % (0-6); % Immature Granulocytes 0.3 % (0-0.5); % Monocytes 11.2 % (1.7-9.3); Absolute Basophils 0.1 10^3/uL (0-0.2); Absolute Eosinophils 0.2 10^3/uL (0-0.7); Absolute Lymphocytes 2.2 10^3/uL (1.2-3.4); Absolute Neutrophils 5.5 10^3/uL (1.4-6.5); Hematocrit 36.8 % (39.0-52.0); Hemoglobin 12.4 g/dL (13.0-18.0); Mean Corp Hgb Conc. 33.7 g/dL (33.0-37.0); Mean Corpuscular Hgb 32.4 pg (27.0-31.0); Mean Corpuscular Volume 96.1 fL (80.0-94.0); Mean Platelet Volume 9.3 fL (7.4-10.4); Nucleated Red Blood Cells % 0 % (-); Platelet Count 395 10^3/uL (130-400); Red Blood Cell Count 3.83 10^6/uL (4.70-6.10); Red Cell Dist. Width 12.3 % (11.5-14.5); White Blood Cell Count 8.9 10^3/uL (4.8-10.8)
[2024-04-17 05:40] LABS: Blood Urea Nitrogen 24 mg/dl (9-20); Calcium 9.6 mg/dl (8.4-10.2); Carbon Dioxide 29 mmol/L (22-30); Chloride 99 mmol/L (98-107); Estimated Creatinine Clearance 109 ml/min; Glucose 109 mg/dl (70-99); Sodium 135 mmol/L (135-145); eGFR > 60.00
[2024-04-17 06:00] VITALS: BMI 39.7
[2024-04-17 07:10] VITALS: BP 111/73
[2024-04-17] MEDS: MOTRIN 800 MG PO (08:39)
[2024-04-17] MEDS: VITAMIN B-12 1000 MCG PO (08:40)
[2024-04-17] MEDS: TOPROL XL 25 MG PO (08:40)
[2024-04-17] MEDS: LASIX 40 MG IV (08:41)
[2024-04-17] MEDS: DAKIN'S SOLUTION 0.125% 1/4 STRENGTH TOPICAL (08:42)
--- NOTE | 2024-04-17 09:10 | W.PN.HOSP.TC ---
Today's Communication/Plan
-
see A/P
Assessment / Plan
Assessment / Plan
HPI: 68-year-old male with unclear past medical history, who presented to the emergency department for evaluation of bilateral lower extremity swelling with redness in setting of chronic BL LE wounds.
The patient was sent in from the wound care center for IV antibiotic.
He was recently on oral antibiotic Keflex per his PCP.
He denies to other symptoms.
A/P:
# BL LE cellulitis in setting of chronic BL LE wounds and chronic lower extremity lymphedema
BL LE venous US neg for DVT
BL LE arterial US EDWIN within normal limits
Wound Cx growing pseudomonas, resistant to PO cipro
Cont IV Cefepime 2g IV q8 till 04/27/24 per ID with home infusion
Wound care and ID on board
# Morbid obesity
BMI 41
# Likely sleep apnea
can start CPAP while in hospital
# weight gain
Substitute TITLE ASSISTANT PO Lasix to IV during hospital stay
work up for CHF outpt
DVT ppx: Lovenox SQ
FC
Dispo: HH per PT OT
DW RN
Anticipated Discharge: Today
Subjective/Interval History
-
Date of Service: April 17, 2024
Objective Data
-
Labs:
Laboratory Results
04/17/24
05:02
WBC 8.9
Hgb 12.4 L
Hct 36.8 L
Plt Count 395
Sodium 135
Potassium 4.0
Chloride 99
Carbon Dioxide 29
BUN 24 H
Creatinine 0.9
Glucose 109 H
Calcium 9.6
Vital Signs:
Vital Signs
Temp Pulse Resp BP Pulse Ox
36.7 C 70 20 131/78 96
04/17/24 07:10 04/17/24 08:40 04/17/24 07:10 04/17/24 08:40 04/17/24 07:10
I&O
04/16/24 04/17/24 04/18/24
06:59 06:59 06:59
Intake Total 300 / 300 125 / 125
Output Total 2525 / 2525 420 / 420
Balance -2525 / -2525 300 / 300 -295 / -295
Review of Systems
-
All other systems: Reviewed and negative
Physical Exam
-
General: Well Developed, Well Nourished, No Apparent Distress, Comfortable, Conversant and Morbidly Obese; Negative Respiratory Distress
HEENT: Normocephalic, Atraumatic, Nose Appears Normal and Ears Appear Normal; Negative Oxygen
Respiratory: Clear to Auscultation and Non Labored Respirations; Negative Accessory Resp Muscle Use
Cardiac: Regular Rhythm and S1/S2
GI: Soft, Nontender, Nondistended and Normal Bowel Sounds
Musculoskeletal: Edema, Right Lower Extrem and Edema, Left Lower Extrem
Skin: Warm, Dry and Lesions (see wound care note)
Neuro: Awake, Alert, Oriented and AO x 3
Psych: Calm and Intact Judgement/Insight
Data Reviewed
-
Ultrasound: Report Reviewed by me
Labs: Labs Reviewed by me
[2024-04-17 10:30] VITALS: BP 115/72
== END 2024-04-17 11:30 | disposition home health service (06) | DRG 593 ==
LOC: 4 EAST ACU 17:03
PROVIDERS: Emergency Medicine; ADMITTING PHYSICIAN Internal Medicine; CONSULT PHYSICIAN Internal Medicine Infectious Disease; EMERGENCY PHYSICIAN Student in an Organized Health Care Education/Training Program; FAMILY PHYSICIAN Student in an Organized Health Care Education/Training Program
PROC: 5A09357 Assistance with Respiratory Ventilation, Less than 24 Consecutive Hours, Continuous Positive Airway Pressure (ICD-10-PCS; 2024-04-14)
DX: L97.219 Non-pressure chronic ulcer of right calf with unspecified severity (principal); L03.115 Cellulitis of right lower limb; Z68.41 Body mass index [BMI] 40.0-44.9, adult; L03.116 Cellulitis of left lower limb; L97.829 Non-pressure chronic ulcer of other part of left lower leg with unspecified severity; E66.01 Morbid (severe) obesity due to excess calories; I11.9 Hypertensive heart disease without heart failure; E66.813 Obesity, class 3; I87.8 Other specified disorders of veins; B95.1 Streptococcus, group B, as the cause of diseases classified elsewhere; I89.0 Lymphedema, not elsewhere classified; G47.30 Sleep apnea, unspecified; B96.5 Pseudomonas (aeruginosa) (mallei) (pseudomallei) as the cause of diseases classified elsewhere
CPT/HCPCS: 80048; 80053; 82962; 83880; 85025; 87070; 87077; 87186; 87205; 93922; 93925; 93970; 94660; 96365; 97162; 97166; 99204; 99285